=== PATIENT | male | born 1955 | race Caucasian/White ===

== ENCOUNTER → 2019-04-28 | Outpatient (CLI) | payer OTHER, SELFPAY ==
--- NOTE | 2019-04-28 13:57 | US_ITS ---
STUDY: THYROID ULTRASOUND REASON FOR EXAM: Male, 63 years old. Nodule, family history of thyroid issues TECHNIQUE: Ultrasound evaluation of the thyroid was performed with real-time and static vega-scale imaging. COMPARISON: None. FINDINGS: RIGHT LOBE: The right lobe of the thyroid gland measures 5.6 x 2.0 x 2.4 cm. There is a heterogeneous echotexture. There are multiple right thyroid lobe nodules, the largest 3 of which were measured. There is a solid isoechoic nodule measuring 4 x 5 x 4 mm. There is a solid isoechoic nodule measuring 7 x 7 x 5 mm. There is a cyst measuring 7 x 5 x 5 mm. LEFT LOBE: The left lobe of the thyroid gland measures 6.0 x 3.4 x 3.2 cm. There is a heterogeneous echotexture. There are multiple left thyroid lobe nodules, the largest 3 were measured. There is a solid complex nodule measuring 24 x 23 x 23 mm. There is an additional solid complex nodule measuring 23 x 24 x 21 mm. The third largest nodule measures 17 x 21 x 10 mm. ISTHMUS: The isthmus measures 4 mm. . The regional lymph nodes are normal. US/Thyroid IMPRESSION: Numerous bilateral thyroid nodules suggestive of multinodular goiter. Fine-needle aspiration biopsy of the greater than 1 cm left thyroid lobe nodules is recommended. Electronically Signed: Willem Brush MD at 23:57 EDT , Service support ,
== END | disposition home or self-care (01) ==
LOC: US 13:52
PROVIDERS: Family Provider Internal Medicine; PCP Internal Medicine; Referring Provider Internal Medicine; Visit Provider Internal Medicine
DX: E04.1 Nontoxic single thyroid nodule (principal)
CPT/HCPCS: 76536

== ENCOUNTER → 2019-05-25 | Outpatient (CLI) | payer OTHER, SELFPAY ==
--- NOTE | 2019-05-25 14:45 | ASPS_PTH ---
PATIENT: LIZZY UREÑA LOC: [facility] U#:[id number] AGE/SX: 63/M ROOM: RE05/25/[address]: Dr. Brett Sue MD : 1955 BED: DIS: 05/25/2019 SPEC #: [id number] RECD: 05/25/19 15:35 STATUS: WALDEMAR RUBEN #: [id number] ELEONORA: 05/25/19 14:[address]: Brett Sue DEPT: CYTOLOGY RECD BY: Shasta Hudson ENTERED: 05/26/19 08:49 SP TYPE: ASPIRATION OTHR DR: Dr. Sheree Roy DO Tissues: Thyroid gland, NOS Procedures: Special Stain Group II Cytology Other HEADER OPERATION: Ultrasound guided fine needle aspiration left thyroid PRE-OP DIAGNOSIS: Multinodular goiter E04.2 TISSUE SUBMITTED: Fine needle aspiration left thyroid (18 slides) DIAGNOSIS CYTOLOGY Left thyroid nodule, ultrasound-guided FNA (smears): Consistent with benign colloid nodule with cystic changes. Adequate for evaluation. See comment. SJ:rg 05/27/19 COMMENT Immediate cytologic evaluation to determine adequacy is not applicable. Correlation with clinical, radiologic findings and appropriate follow up are necessary. CYTOLOGY STUDY Slides are reviewed. CYTOLOGY GROSS Received are 18 smears labeled with the patient's name and designated per the requisition as FNA left thyroid. Submitted for staining. /CC:cc 05/26/19 TC:5 CPT: 31152
[2019-05-25 14:59] VITALS: BMI 34.0
== END | disposition home or self-care (01) ==
LOC: LABSPEC 15:37
PROVIDERS: Family Provider Internal Medicine; PCP Internal Medicine; Referring Provider Surgery; Visit Provider Surgery
DX: E04.2 Nontoxic multinodular goiter (principal)
CPT/HCPCS: 88161; 88313

== ENCOUNTER → 2019-10-07 13:31 | Outpatient (CLI) | payer OTHER, SELFPAY ==
[2019-05-25 14:59] VITALS: BMI 34.0
== END ==
PROVIDERS: PCP Internal Medicine; Referring Provider Internal Medicine; Visit Provider Internal Medicine
DX: M54.40 Lumbago with sciatica, unspecified side (principal)

== ENCOUNTER 2019-10-18 03:05 | Emergency (ER) | payer OTHER, SELFPAY ==
[2019-05-25 14:59] VITALS: BMI 34.0
[2019-10-18 03:07] VITALS: BP 159/99; BP 171/106; PULSE 95; RESP 18; TEMP 36.4; O2SAT 98; BMI 29.9
--- NOTE | 2019-10-18 03:23 | ED.VISSUMM ---
- ER Visit Summary Date of Service: 10/18/19 Chief Complaint: Right lower back pain after moving a refrigerator History of Present Illness: The patient is a 64 M history of prior diabetes and hypertension but states he lost a fair amount of weight and those resolved. Patient states he was helping his daughters friend move. And on Saturday morning after they moved a refrigerator he developed lower back pain on the right side at times he goes to his right leg. He denies any prior back surgery or degenerative disc disease. He denies any numbness or incontinence. No leg weakness. Physical Examination: Older male no acute distress vital signs are stable and afebrile. He does not look septic or toxic. H EENT exam unremarkable. Neck nontender no lymphadenopathy. Lungs clear to auscultation bilaterally. Heart regular rhythm no murmur. Abdomen soft nontender normal bowel sounds no peritoneal signs. No pulsatile mass. Patient is moving all 4 extremities. Neurovascularly intact. 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 5 out of 5 dorsi plantar flexion. No cauda equina. No saddle anesthesia. Normal medial thigh sensation. Normal dorsi plantarflexion of the feet. Negative straight leg raise bilaterally. Back spine is nontender. He has tenderness primarily over his right SI joint. There is no ecchymosis or bruising. No redness or warmth. No signs of trauma. Neurologic exam is normal. Again no cauda equina. Normal motor strength and sensation of both lower extremities. Test Results: None Emergency Department Course and Treatment: History and exam are consistent with acute right sciatica. Patient drove but will be given 1 OxyIR to take at home tonight. Treatment Plan: Motrin for pain. Ice to the area. Limited Percocet 10 no refill. Follow-up with his primary care physician. Disposition: Discharge Impression: Acute right sciatica This note was generated with My[employer] dictation software. It may contain incorrect words, spelling, and punctuation that were not noted in review of the chart prior to signing ED Disposition - Plan for ED Patient: Referrals: NOT,DEFINED [Primary Care Provider] -
--- NOTE | 2019-10-18 03:26 | DCINST.ED_ITS ---
ED Disposition - Plan for ED Patient: Disposition: Home or Assisted Living Instructions: BACK PAIN w/ SCIATICA Prescriptions: Oxycodone HCl/Acetaminophen [Percocet 10-325 mg Tablet] 1 tab PO Q6H PRN PRN 3 Days #10 tab PRN Reason: Pain Prescription Printed Referrals: Fast,Sheree, DO [NON-STAFF] - 1 Week if not improving Additional Instructions: Ice to your lower back. Motrin for pain and inflammation. Percocet for more severe pain. Make sure you are drinking plenty of fluids and eating plenty of fiber to prevent constipation. Follow-up with your doctor or someone else in the office if you have to change d octors.
[2019-10-18] MEDS: oxyCODONE 5 MG Tablet 10 MG PO (03:33)
[2019-10-18 03:34] VITALS: BP 149/86; PULSE 96; RESP 16; O2SAT 98
== END 2019-10-18 03:40 | disposition home or self-care (01) ==
LOC: ED 03:41
PROVIDERS: Emergency Provider Emergency Medicine; PCP Internal Medicine
DX: M54.41 Lumbago with sciatica, right side (principal); Z72.0 Tobacco use
CPT/HCPCS: 99283

== ENCOUNTER 2022-02-03 10:48 | Emergency (ER) | payer MEDICARE, OTHER, SELFPAY ==
[2022-02-03 10:49] VITALS: BP 148/110; PULSE 87; RESP 17; TEMP 36.6; O2SAT 99; BMI 32.1
[2022-02-03 10:57] VITALS: BP 148/110; PULSE 87; RESP 17; TEMP 36.6; O2SAT 99
--- NOTE | 2022-02-03 11:08 | CT_ITS ---
STUDY: CT ABDOMEN AND PELVIS WITHOUT CONTRAST REASON FOR EXAM: Male, 66 years old. Radiating flank pain RADIATION DOSAGE (If Supplied By Facility): CTDIvol = ( 13.99 ) mGy, DLP = ( 751.32 ) mGycm TECHNIQUE: Transaxial images were obtained from the dome of the diaphragm to the symphysis pubis without oral contrast, and without intravenous contrast. Sagittal and coronal images were reconstructed. Individualized dose optimization techniques were used for this CT. COMPARISON: None. FINDINGS: There are chronic interstitial fibrotic changes of the lung bases. The visualized portions of the heart are within normal limits, there is a small pericardial effusion. Normal liver. Normal gallbladder and extrahepatic biliary system. Normal spleen. Normal pancreas. Normal bilateral adrenal glands. There is right-sided hydronephrosis and hydroureter with perinephric and periureteral inflammatory stranding. Findings due to a 5.6 mm stone in the proximal right ureter on axial image 75. Normal left kidney, incidental note is made of a retroaortic left renal vein Normal visualized stomach. Normal small intestine. Retained stool in the colon with scattered colonic diverticula, no CT evidence of acute diverticulitis. There is a bowel loop interposed between the anterior edge of the liver and the peritoneal surface which can cause pain in the right clinical setting. There is non-visualization of the appendix. Normal abdominal aorta. Normal inferior vena cava. Scattered subcentimeter mesenteric and retroperitoneal lymph nodes. Normal urinary bladder. Normal abdominal wall. There are diffuse degenerative changes of the visualized lumbar spine, and pelvis. CT/Abdomen/Pelvis without Cont IMPRESSION: 5.6 mm calcification in the proximal right ureter causing right-sided hydronephrosis and hydroureter with perinephric and periureteral inflammatory stranding. Retained stool noted in the colon, scattered colonic diverticula without CT evidence of acute diverticulitis No free intraperitoneal fluid, air, or suspicious adenopathy Degenerative bony changes Small pericardial effusion Electronically Signed: Angelo Bolaños MD at 12:40 EDT ,
--- NOTE | 2022-02-03 11:09 | EX.ED.GUMALE ---
HPI History of Present Illness Chief Complaint: Flank Pain Narrative Narrative: 66-year-old male presenting with right flank pain. He states its been intermittent for the last 3 days. He describes it as sharp. He has episodes where he is sweating and nauseous. Initially he thought he ate some bad food and has cut out meat. He states he is having bowel movements. He denies urinary complaints. No fever. Patient states ibuprofen is not helping. He has been drinking a lot of water. No history of kidney stones. [facility] Medical History (Updated 02/03/22 @ 13:[address] Neel Mills DO) Erectile dysfunction Hypertension thyroid nodues Home Medications Cialis 5 mg PO/SL DAILY PRN Erectile Dysfunction 02/03/22 [History Last Taken Unknown] ondansetron 4 mg disintegrating tablet 4 mg PO Q8H PRN nausea and vomiting #12 tabs 02/03/22 [Rx Last Taken Unknown] oxycodone-acetaminophen 5 mg-325 mg tablet (Percocet) 1 tab PO Q6H PRN pain 3 days #12 tabs 02/03/22 [Rx Last Taken Unknown] valsartan 160 mg PO/SL DAILY 02/03/22 [History Last Taken Unknown] Allergy/AdvReac Type Severity Reaction Status Date / Time No Known Allergies Allergy Verified 02/03/22 10:49 Family History Mother Thyroid disorder Cancer cervical cancer Father Hypertension Surgical History No history of previous surgery Social History Smoking Status: Current some day smoker tobacco type: cigarettes alcohol intake: never substance use type: does not use ROS ROS ED Constitutional Constitutional ED: Reports sweats; Denies chills or fever(s) Eyes Eyes: Denies blurry vision or change in vision ENT ENT ED: Denies rhinorrhea or sore throat Cardiovascular Cardiovascular: Denies chest pain or palpitations Respiratory/Chest Respiratory/Chest: Denies cough or dyspnea Gastrointestinal Gastrointestinal: Reports abdominal pain, nausea and vomiting; Denies constipation Genitourinary Genitourinary ED: Denies dysuria or hematuria Musculoskeletal Musculoskeletal: Reports back pain; Denies arthralgias Integumentary Denies abscess Neurologic Neurologic: Denies headache(s) or paresthesias Psychiatric Psychiatric: Denies anxiety or depression EXAM Physical Exam Const Vital Signs: 02/03/22 10:49 02/03/22 10:57 Temperature 97.8 F 97.8 F Temperature Source Temporal Temporal Pulse Rate 87 87 Respiratory Rate 17 17 Blood Pressure 148/110 H 148/110 H Blood Pressure Mean 122 122 Pulse Ox 99 99 Oxygen Delivery Method Room Air Room Air Positive well nourished General Appearance ED: NAD; Negative for pallor HEENT Reports moist mucous membranes normocephalic Eyes PERRL and EOMs intact bilaterally Resp normal respiratory effort and clear to auscultation bilaterally Cardio regular rate and regular rhythm GI non-tender Back/Spine General Back: CVA tenderness right Neuro Sensorium / Orientation: alert, oriented to person, oriented to place and oriented to time Motor Exam: strength 5/5 throughout Psych mental status grossly normal Skin General Skin Exam: Negative for jaundice or pallor MDM MDM MDM Narrative Medical decision making narrative: Patient presenting with right flank pain. This is been ongoing for 3 days. It is intermittent and sharp. I did obtain urinalysis and this does show occult blood. There is no evidence of infection. CBC and BMP are unremarkable. CT abdomen pelvis without contrast shows a right 5.6 mm proximal ureteral stone. Patient required 2 doses of morphine for this pain her control is currently pain-free. He was given oxycodone prior to discharge. He is counseled if he has new or worsening pain or worsening nausea and vomiting to return to the ER. He was given Percocet and Zofran for home. He was given urology follow-up. Impression: 1. Right proximal ureteral stone 5.6 mm 2. Hematuria 3. Nausea/vomiting 4. Right-sided hydronephrosis Lab Data Attestation: I reviewed the patient's lab results. Labs: Laboratory Results - last 24 hr 02/03/22 02/03/22 02/03/22 11:23 11:30 11:30 WBC 8.5 RBC 5.63 Hgb 17.4 H Hct 51.2 MCV 90.9 MCH 30.9 MCHC 34.0 RDW Std Deviation 45.9 H RDW Coeff of Quiana 13.5 Plt Count 179 MPV 9.7 Immature Gran % (Auto) 0.400 Neut % (Auto) 86.9 H Lymph % (Auto) 6.4 L [place] % (Auto) 5.7 Eos % (Auto) 0.2 Baso % (Auto) 0.4 Absolute Neuts (auto) 7.4 Absolute Lymphs (auto) 0.55 L Nucleated RBC % 0 Differential Comment SCANNED Sodium 141 Potassium 4.0 Chloride 111 H Carbon Dioxide 25.0 Anion Gap 5 BUN 19 H Creatinine 1.17 Estim Creat Clear Calc 58.46 Est GFR (MDRD) Af Amer 80 Est GFR (MDRD) Non-Af 66 BUN/Creatinine Ratio 16.2 Glucose 144 H Calcium 8.9 Urine Color Yellow Urine Clarity Clear Urine pH 6.0 Ur Specific [place] 1.025 Urine Protein 30 H Urine Glucose (UA) Normal Urine Ketones Negative Urine Occult Blood 25 H Urine Nitrite Negative Urine Bilirubin Negative Urine Urobilinogen Normal Ur Leukocyte Esterase 25 H Urine RBC 5-10 SEEN Urine WBC 5-10 SEEN Ur Squamous Epith Cells 0 SEEN Urine Bacteria 0 SEEN Urine Mucus 0 SEEN Radiography Diagnostic Testing: Clinical Impression(s) from Imaging Studies Abdomen/Pelvis CT 02/03/22 11:08 IMPRESSION: 5.6 mm calcification in the proximal right ureter causing right-sided hydronephrosis and hydroureter with perinephric and periureteral inflammatory stranding. Retained stool noted in the colon, scattered colonic diverticula without CT evidence of acute diverticulitis No free intraperitoneal fluid, air, or suspicious adenopathy Degenerative bony changes Small pericardial effusion Electronically Signed: Angelo Bolaños MD at 12:40 EDT Reading Location ID and State: [address] [place] [address] , Service support , Discharge Plan Triage Chief Complaint: Flank Pain ED Provider: Neel Mills Dx/Rx/DC Orders Instructions: ED Kidney Stone w/ Colic Prescriptions: New oxycodone-acetaminophen [Percocet] 5-325 mg tablet 1 tab PO Q6H PRN (Reason: pain) 3 Days Qty: 12 0RF ondansetron 4 mg tablet,disintegrating 4 mg PO Q8H PRN (Reason: nausea and vomiting) Qty: 12 0RF No Action Cialis 5 mg PO/SL DAILY PRN (Reason: Erectile Dysfunction) valsartan 160 mg PO/SL DAILY Primary Care Provider: Patrick Schultz NP Referrals: Kenneth Ward MD [STAFF PHYSICIAN] - 3-5 Days Patrick Schultz NP, T[employer] EXAMINER-C [Primary Care Provider] - Disposition Disposition: Home, Self Care Discharge Date/Time: 02/03/22 13:46
[2022-02-03] MEDS: Ketorolac 15 MG/ML Vial IV (11:27)
[2022-02-03] MEDS: Ondansetron 4 MG/2 ML Vial IV (11:27)
[2022-02-03] MEDS: Morphine 4 MG/ML Syringe IV ×2 (11:28→12:20)
[2022-02-03] MEDS: 0.9% Normal Saline 1,000 ML 999 ML IV (11:30)
[2022-02-03 11:31] LABS: Bacteria 0 SEEN /hpf (None Seen); Mucous, Urine 0 SEEN /hpf (<or=2+); Squamous Epithelial Cells - UA 0 SEEN /hpf (0-5)
[2022-02-03 11:38] LABS: Color, Urine Yellow (Yellow); Glucose, Dipstick Normal (Normal); Ketone-Dipstick Negative (Negative); Leukocyte Esterase-Dipstick 25 /ul (Negative); Nitrite-Dipstick Negative (Negative); Occult Blood-Urine 25 /ul (Negative); Protein-Dipstick 30 mg/dl (Negative); Specific Gravity, Urine 1.025 (1.002-1.030); Urine Bilirubin Dipstick Negative (Negative); Urine Clarity Clear (Clear); Urine Urobilinogen Normal (Normal)
[2022-02-03 11:46] LABS: Red Blood Cells-Urine 5-10 SEEN /hpf (0-5); White Blood Cells 5-10 SEEN /hpf (0-5)
[2022-02-03 11:51] LABS: Anion Gap 5 (5-15); BUN 19 mg/dL (7-18); BUN/Creat Ratio 16.2 RATIO (10-20); Calcium,Total 8.9 mg/dL (8.5-10.1); Chloride 111 mmol/L (98-107); Creatinine, Serum 1.17 mg/dL (0.70-1.30); EST Glomerular Filtration Rate 66 mL/min (>60); Est Glom Filt Rate - Afr Amer 80 mL/min (>60); Estimated Creatinine Clearance 58.46 ml/min; Glucose 144 mg/dL (74-106); Sodium Level 141 mmol/L (136-145)
[2022-02-03 11:52] LABS: Absolute Lymphocyte Count 0.55 X10^3/uL (0.83-4.51); Absolute Neutrophil Count 7.4 X10^3/uL (2.0-7.7); Basophil# 0.03 X10^3/uL; Basophil% 0.4 % (0-1); Eosinophil# 0.02 X10^3/uL; Eosinophils% 0.2 % (0-5); Hematocrit 51.2 % (40-54); Hemoglobin 17.4 g/dL (13.0-16.5); Lymphocyte # 0.55 X10^3/ul (0.83-4.51); Lymphocyte % 6.4 % (19-41); Mean Corpuscular Hgb 30.9 pg (27.0-32.0); Mean Corpuscular Volume 90.9 fL (80-94); Mean Platelet Vol. 9.7 fl (6.2-12.0); Monocyte# 0.49 X10^3/uL; Monocyte% 5.7 % (0-10); NRBC Flagged by Analyzer 0 % (0-5); Neutrophil # 7.42 X10^3/uL (2.7-7.7); Neutrophil % 86.9 % (47-70); POSITIVE DIFFERENTIAL YES; Platelet Count 179 K/mm3 (150-450); RBC Distribution Width CV 13.5 % (11.6-14.6); RBC Distribution Width SD 45.9 fl (35.1-43.9); Red Blood Count 5.63 M/mm3 (4.6-6.2); White Blood Count 8.5 K/mm3 (4.4-11.0)
[2022-02-03 11:57] LABS: Differential Indicated SCAN CRITERIA MET
[2022-02-03 12:27] LABS: Differential Comment SCANNED
[2022-02-03] MEDS: oxyCODONE 5 MG Tablet PO (13:32)
== END 2022-02-03 13:46 | disposition home or self-care (01) ==
PROVIDERS: Emergency Provider Student in an Organized Health Care Education/Training Program; PCP Nurse Practitioner Family; Visit Provider Student in an Organized Health Care Education/Training Program
DX: N13.2 Hydronephrosis with renal and ureteral calculous obstruction (principal); R31.9 Hematuria, unspecified; F17.210 Nicotine dependence, cigarettes, uncomplicated
CPT/HCPCS: 74176; 80048; 81001; 85025; 96361; 96374; 96375; 96376; 99283; J7030; J2405

== ENCOUNTER 2022-02-09 23:58 | Emergency (ER) | payer MEDICARE, OTHER, SELFPAY ==
[2022-02-09 23:59] VITALS: BP 159/106; PULSE 84; RESP 15; TEMP 36.6; O2SAT 97; BMI 30.4
--- NOTE | 2022-02-10 00:44 | CT_ITS ---
EXAM: CT ABDOMEN AND PELVIS WITHOUT INTRAVENOUS CONTRAST CLINICAL INDICATION: right flank pain TECHNIQUE: Helically acquired images were obtained of the abdomen and pelvis without intravenous contrast. This CT exam was performed using one or more of the following dose reduction techniques: automated exposure control, adjustment of the mA and/or kV according to patient size, and/or use of iterative reconstruction technique. This report was created using [employer] report generation technology. COMPARISON: Nonenhanced CT of 02/03/2022. FINDINGS: LOWER THORAX: No acute basilar pulmonary infiltrates or pleural effusions. Small-moderate pericardial effusion is present, slightly larger than on the prior study; this pericardial effusion measures up to 15 mm in thickness inferiorly and 12 mm in thickness posteriorly. Moderate coronary artery calcification is partially visualized. BONES: Extensive flowing osteophytes noted in the lower thoracic region with fusion of many of the lower thoracic disc spaces. Severe degenerative disc space narrowing with vacuum phenomenon noted at the L5/S1 level. ABDOMEN: LIVER: Right hepatic lobe remains elongated measuring 20 cm in cephalocaudal dimension. GALLBLADDER AND BILE DUCTS: Unremarkable. No calcified gallstones. No gallbladder distention or wall edema. No intra- or extrahepatic biliary ductal dilation. PANCREAS: Unremarkable. No focal cystic mass. An uncomplicated duodenal diverticulum abuts the pancreatic head. SPLEEN: Spleen remains enlarged measuring 15 cm in AP diameter. ADRENALS: Unremarkable. No nodules. KIDNEYS AND URETERS: Right kidney remains edematous with persistent hydronephrosis, not significantly changed. The proximal right ureter remains dilated secondary to a 5 mm ovoid stone lies within the proximal third of the right ureter as it curves posterior medial to the IVC as noted on axial images 83 through 85 of series 2. More distal right ureter is decompressed. Left kidney is unremarkable. Normal renal size and position. STOMACH AND BOWEL No gastric mural thickening, periduodenal inflammatory changes or distended small bowel loops. Numerous colonic diverticula are present without evidence for acute diverticulitis. PELVIS: APPENDIX: Normal. No evidence of acute appendicitis. BLADDER: The previously noted bladder calculi are no longer present. REPRODUCTIVE: Prostate gland measures 4.8 cm in transverse diameter. ABDOMEN and PELVIS: INTRAPERITONEAL SPACE: Unremarkable. No ascites or other fluid collection. No free air. SOFT TISSUES: Unremarkable. No discrete abdominal or pelvic wall hernia. VASCULATURE: Mild calcific abdominal aorta and its branches. No AAA. . LYMPH NODES: Unremarkable. No enlarged lymph nodes. OTHER FINDINGS: Dosage: DLP: 621.45 mGy-cm and CTDI: 11.[address]/Abdomen/Pelvis without Cont IMPRESSION: Stable moderate right hydronephrosis due to a 5 mm stone which lies within the proximal third of the ureter. Slight increase in size of a mild/moderate pericardial effusion. 2 bladder calculi seen on the prior study are no longer present. Extensive colonic diverticulosis without evidence for acute diverticulitis. Electronically Signed: Charan Ding MD at 2:23 EDT ,
[2022-02-10] MEDS: Ondansetron 4 MG/2 ML Vial IV (00:50)
[2022-02-10] MEDS: Morphine 4 MG/ML Syringe IV (00:50)
[2022-02-10] MEDS: 0.9% Normal Saline 1,000 ML 999 ML IV (00:54)
[2022-02-10 01:06] LABS: Mucous, Urine 0 SEEN /hpf (<or=2+); Squamous Epithelial Cells - UA 0 SEEN /hpf (0-5)
[2022-02-10 01:08] LABS: Absolute Lymphocyte Count 0.88 X10^3/uL (0.83-4.51); Absolute Neutrophil Count 3.9 X10^3/uL (2.0-7.7); Basophil# 0.06 X10^3/uL; Basophil% 1.1 % (0-1); Color, Urine Yellow (Yellow); Eosinophil# 0.22 X10^3/uL; Eosinophils% 3.9 % (0-5); Glucose, Dipstick Normal (Normal); Hematocrit 53.9 % (40-54); Hemoglobin 17.7 g/dL (13.0-16.5); Ketone-Dipstick 5 mg/dl (Negative); Leukocyte Esterase-Dipstick 25 /ul (Negative); Lymphocyte # 0.88 X10^3/ul (0.83-4.51); Lymphocyte % 15.4 % (19-41); Mean Corp Hgb Conc 32.8 g/dL (32-36); Mean Corpuscular Hgb 31.6 pg (27.0-32.0); Mean Corpuscular Volume 96.1 fL (80-94); Mean Platelet Vol. 9.9 fl (6.2-12.0); Monocyte% 10.5 % (0-10); NRBC Flagged by Analyzer 0 % (0-5); Neutrophil # 3.92 X10^3/uL (2.7-7.7); Neutrophil % 68.7 % (47-70); Nitrite-Dipstick Negative (Negative); Occult Blood-Urine 50 /ul (Negative); Platelet Count 203 K/mm3 (150-450); Protein-Dipstick 30 mg/dl (Negative); RBC Distribution Width CV 13.4 % (11.6-14.6); RBC Distribution Width SD 48.2 fl (35.1-43.9); Red Blood Count 5.61 M/mm3 (4.6-6.2); Specific Gravity, Urine 1.025 (1.002-1.030); Urine Bilirubin Dipstick Negative (Negative); Urine Clarity Clear (Clear); Urine Urobilinogen 1 mg/dl (Normal); White Blood Count 5.7 K/mm3 (4.4-11.0)
[2022-02-10 01:18] LABS: White Blood Cells 10-25 SEEN /hpf (0-5)
[2022-02-10 01:19] LABS: Bacteria 1+ /hpf (None Seen); Calcium Oxalate Crystals Ur RARE /hpf (<or=2+); Red Blood Cells-Urine 0-5 SEEN /hpf (0-5)
[2022-02-10 01:23] LABS: Anion Gap 3 (5-15); BUN 16 mg/dL (7-18); Calcium,Total 9.1 mg/dL (8.5-10.1); Chloride 108 mmol/L (98-107); Creatinine, Serum 1.33 mg/dL (0.70-1.30); EST Glomerular Filtration Rate 57 mL/min (>60); Est Glom Filt Rate - Afr Amer 69 mL/min (>60); Estimated Creatinine Clearance 51.43 ml/min; Glucose 141 mg/dL (74-106); Potassium 3.9 mmol/L (3.5-5.1); Sodium Level 142 mmol/L (136-145)
[2022-02-10] MEDS: Ketorolac 15 MG/ML Vial IV (02:09)
[2022-02-10] MEDS: Ceftriaxone 1 GM/50 ML BAG IV (02:10)
[2022-02-10 02:13] VITALS: BP 122/78; PULSE 75; RESP 15; O2SAT 96
[2022-02-10 03:21] VITALS: BP 122/78; PULSE 75; RESP 15; O2SAT 96
--- NOTE | 2022-02-10 03:22 | EDS_ITS ---
HPI History of Present Illness Chief Complaint: Flank Pain Narrative Narrative: Patient is a 66-year-old male with past medical history of kidney stone and hypertension. He was seen on February 03 secondary to right flank pain and found to have a 5 mm stone in the proximal ureter. He states he has been taking his prescribed medications as directed but today had increased pain despite doing this and therefore returns for repeat evaluation. [facility] Medical History (Updated 02/10/22 @ 03:[address] Khurram Morton DO) Anxiety Erectile dysfunction Hypertension Kidney stones Osteoporosis Smoker thyroid nodues Home Medications Cialis 5 mg PO/SL DAILY PRN Erectile Dysfunction 02/03/22 [History Last Taken Unknown] oxycodone-acetaminophen 5 mg-325 mg tablet (Percocet) 1 tab PO Q6H PRN pain 3 days #12 tabs 02/03/22 [Rx Last Taken Unknown] valsartan 160 mg PO/SL DAILY 02/03/22 [History Last Taken Unknown] cephalexin 500 mg capsule 500 mg PO TID 7 days #21 caps 02/10/22 [Rx Last Taken Unknown] ketorolac 10 mg tablet 10 mg PO Q6H PRN pain 5 days #20 tabs 02/10/22 [Rx Last Taken Unknown] omeprazole 20 mg capsule,delayed release 20 mg PO DAILY 02/10/22 [History Last Taken Unknown] oxycodone-acetaminophen 5 mg-325 mg tablet (Percocet) 1 tab PO Q6H PRN pain 5 days #20 tabs 02/10/22 [Rx Last Taken Unknown] tamsulosin 0.4 mg capsule (Flomax) 0.4 mg PO BID 02/10/22 [History Last Taken Unknown] Allergy/AdvReac Type Severity Reaction Status Date / Time No Known Allergies Allergy Verified 02/10/22 00:05 Family History Mother Thyroid disorder Cancer cervical cancer Father Hypertension Surgical History No history of previous surgery Social History Smoking Status: Current some day smoker tobacco type: cigarettes alcohol intake: never substance use type: does not use ROS ROS ED Constitutional Constitutional ED: Denies chills or fever(s) ENT ENT ED: Denies sore throat Cardiovascular Cardiovascular: Denies chest pain Respiratory/Chest Respiratory/Chest: Denies cough or dyspnea Gastrointestinal Gastrointestinal: Reports abdominal pain and nausea; Denies diarrhea or vomiting Genitourinary Genitourinary ED: Reports hematuria; Denies dysuria Musculoskeletal Musculoskeletal: Reports back pain; Denies myalgias Integumentary Denies rash Neurologic Neurologic: Denies headache(s) Hematologic/Lymphatic Hematologic/Lymphatic: Denies easy bleeding or easy bruising EXAM Physical Exam Const Vital Signs: 02/09/22 23:59 02/10/22 00:20 02/10/22 02:13 Temperature 97.8 F Temperature Source Temporal Pulse Rate 84 75 Respiratory Rate 15 15 Respiratory Effort Normal Respiratory Pattern Normal Blood Pressure 159/106 H 122/78 H Blood Pressure Mean 123 92 Pulse Ox 97 96 Oxygen Delivery Method Room Air Room Air 02/10/22 03:21 Temperature Temperature Source Pulse Rate 75 Respiratory Rate 15 Respiratory Effort Respiratory Pattern Blood Pressure 122/78 H Blood Pressure Mean Pulse Ox 96 Oxygen Delivery Method Positive well nourished and well developed General Appearance ED: well developed Eyes PERRL and EOMs intact bilaterally Neck supple Resp normal respiratory effort and clear to auscultation bilaterally Cardio regular rate and regular rhythm Rate: other Other Details: Radial pulses are plus 2 out of 4 bilaterally are equal and symmetric GI non-tender and non-distended GI Narrative: No voluntary guarding or rigidity no pulsatile mass Auscultation: normoactive bowel sounds Palpation: soft Back/Spine Back/Spine Narrative: Positive right CVA pain Extremity normal to inspection Neuro oriented x3 and CN's II-XII intact bilaterally Sensorium / Orientation: alert Psych mental status grossly normal Skin no rashes or lesions noted MDM MDM MDM Narrative Medical decision making narrative: Patient presented to the ER hypertensive but I felt this was secondary to pain and otherwise had stable vitals. He has a known kidney stone on the right and based on his report of where the pain is located this would indicate the stone has hardly moved. Secondary to the repeat pain I did elect to perform repeat laboratory studies as well as CT scan. Labs showed no signs of urosepsis or acute kidney injury. The patient did have a mild infection noted on his urine sample so he was given Rocephin. CT scan still confirmed hydronephrosis with just minimal movement of the stone from approximately 1 week ago. I discussed with patient possible admission secondary to need for possible further therapy such as lithotripsy for this. Patient states however that after treatment in the ER his pain has improved. Also as he has no signs of urosepsis or acute kidney injury I cannot force the issue. Therefore at this time as patient has improvement of pain without signs of JAMAR or urosepsis he will be put on further medication and can follow-up with urology for repeat evaluation Lab Data Attestation: I reviewed the patient's lab results. Labs: Laboratory Results - last 24 hr 02/10/22 02/10/22 02/10/22 00:42 00:42 00:42 WBC 5.7 RBC 5.61 Hgb 17.7 H Hct 53.9 MCV 96.1 H MCH 31.6 MCHC 32.8 RDW Std Deviation 48.2 H RDW Coeff of [place] 13.4 Plt Count 203 MPV 9.9 Immature Gran % (Auto) 0.400 Neut % (Auto) 68.7 Lymph % (Auto) 15.4 L [place] % (Auto) 10.5 H Eos % (Auto) 3.9 Baso % (Auto) 1.1 H Absolute Neuts (auto) 3.9 Absolute Lymphs (auto) 0.88 Nucleated RBC % 0 Sodium 142 Potassium 3.9 Chloride 108 H Carbon Dioxide 31.0 Anion Gap 3 L BUN 16 Creatinine 1.33 H Estim Creat Clear Calc 51.43 Est GFR (MDRD) Af Amer 69 Est GFR (MDRD) Non-Af 57 L BUN/Creatinine Ratio 12.0 Glucose 141 H Calcium 9.1 Urine Color Yellow Urine Clarity Clear Urine pH 5.0 Ur Specific [place] 1.025 Urine Protein 30 H Urine Glucose (UA) Normal Urine Ketones 5 H Urine Occult Blood 50 H Urine Nitrite Negative Urine Bilirubin Negative Urine Urobilinogen 1 H Ur Leukocyte Esterase 25 H Urine RBC 0-5 SEEN Urine WBC 10-25 SEEN Ur Squamous Epith Cells 0 SEEN Calcium Oxalate Crystal RARE Urine Bacteria 1+ Urine Mucus 0 SEEN Radiography Diagnostic Testing: Clinical Impression(s) from Imaging Studies Abdomen/Pelvis CT 02/10/22 00:44 IMPRESSION: Stable moderate right hydronephrosis due to a 5 mm stone which lies within the proximal third of the ureter. Slight increase in size of a mild/moderate pericardial effusion. 2 bladder calculi seen on the prior study are no longer present. Extensive colonic diverticulosis without evidence for acute diverticulitis. Electronically Signed: Charan Ding MD at 2:23 EDT , Discharge Plan Triage Chief Complaint: Flank Pain ED Provider: Khurram Morton Dx/Rx/DC Orders Clinical Impression: Kidney stone on right side, Renal colic, Hydronephrosis Instructions: ED Kidney Stone w/ Colic Prescriptions: New oxycodone-acetaminophen [Percocet] 5-325 mg tablet 1 tab PO Q6H PRN (Reason: pain) 5 Days Qty: 20 0RF ketorolac 10 mg tablet 10 mg PO Q6H PRN (Reason: pain) 5 Days Qty: 20 0RF cephalexin 500 mg capsule 500 mg PO TID 7 Days Qty: 21 0RF No Action Cialis 5 mg PO/SL DAILY PRN (Reason: Erectile Dysfunction) valsartan 160 mg PO/SL DAILY oxycodone-acetaminophen [Percocet] 5-325 mg tablet 1 tab PO Q6H PRN (Reason: pain) 3 Days Qty: 12 0RF tamsulosin [Flomax] 0.4 mg Capsule 0.4 mg PO BID omeprazole 20 mg Capsule,Delayed Release(Dr/Ec) 20 mg PO DAILY Primary Care Provider: Patrick Schultz NP Referrals: Patrick Schultz INVENTORY AUDITOR, INVENTORY AUDITOR-C [Primary Care Provider] - Activity Restrictions/Additional Instructions: Please follow-up with the urology to discuss need for possible lithotripsy as your stone has not really moved in the past week. Please continue your Flomax and return to the ER if your pain is not controlled with outpatient medication or you develop a fever over 100.4 Disposition Disposition: Home, Self Care Discharge Date/Time: 02/10/22 03:34
== END 2022-02-10 03:34 | disposition home or self-care (01) ==
PROVIDERS: Emergency Provider Emergency Medicine; PCP Nurse Practitioner Family; Visit Provider Emergency Medicine
DX: N13.2 Hydronephrosis with renal and ureteral calculous obstruction (principal); N23 Unspecified renal colic; F17.210 Nicotine dependence, cigarettes, uncomplicated; I10 Essential (primary) hypertension; Z79.899 Other long term (current) drug therapy
CPT/HCPCS: 74176; 80048; 81001; 85025; 87086; 96361; 96365; 96375; 99283; J7030; A4216; J2405

== ENCOUNTER → 2022-06-13 | Outpatient (CLI) | payer MEDICARE, OTHER, SELFPAY ==
--- NOTE | 2022-06-13 09:12 | EKG12_ITS ---
Test Reason : PALPITATIONS Blood Pressure : / mmHG Vent. Rate : 095 BPM Atrial Rate : 095 BPM P-R Int : 162 ms QRS Dur : 084 ms QT Int : 384 ms P-R-T Axes : 065 228 116 degrees QTc Int : 482 ms Normal sinus rhythm ST & T wave abnormality, consider lateral ischemia Abnormal ECG Confirmed by YASMANI LIAO, RAFAEL ([id number]), makeup editor ASHA BUSTAMANTE ([id number]) on 06/19/2022 10:53:58 AM Referred By: Patrick Schultz Confirmed By:MURRAY GRUBER MD
[2022-06-13 10:26] LABS: Hematocrit 54.7 % (40-54); Hemoglobin 18.1 g/dL (13.0-16.5); Mean Corp Hgb Conc 33.1 g/dL (32-36); Mean Corpuscular Hgb 31.3 pg (27.0-32.0); Mean Corpuscular Volume 94.6 fL (80-94); Mean Platelet Vol. 10.4 fl (6.2-12.0); Platelet Count 154 K/mm3 (150-450); RBC Distribution Width CV 13.8 % (11.6-14.6); RBC Distribution Width SD 48.1 fl (35.1-43.9); Red Blood Count 5.78 M/mm3 (4.6-6.2); White Blood Count 5.8 K/mm3 (4.4-11.0)
[2022-06-13 10:56] LABS: BNP,B-Type NATRIURETIC PEPTIDE 1455.5 pg/mL (0-100)
[2022-06-13 11:20] LABS: ALB/GLOB Ratio 1.2 RATIO (0.9-2.4); AST(SGOT) 23 U/L (15-37); Alanine Aminotransfer ALT/SGPT 18 U/L (16-61); Albumin, Serum 3.6 g/dL (3.2-5.0); Alkaline Phosphatase 95 U/L (45-117); Anion Gap 5 (5-15); BUN 17 mg/dL (7-18); CRP < 2.90 mg/L (0.0-3.0); Calcium,Total 8.6 mg/dL (8.5-10.1); Chloride 107 mmol/L (98-107); Creatinine, Serum 1.06 mg/dL (0.70-1.30); EST Glomerular Filtration Rate 74 mL/min (>60); Est Glom Filt Rate - Afr Amer 89 mL/min (>60); Globulin 3.1 g/dL (2.2-4.2); Glucose 130 mg/dL (74-106); Potassium 3.9 mmol/L (3.5-5.1); Protein, Total 6.7 g/dL (6.4-8.2); Sodium Level 141 mmol/L (136-145); Thyroid Stim Hormone (TSH) 1.15 uIU/mL (0.358-3.74)
[2022-06-14 15:38] LABS: Pathologist Review Reviewed
== END | disposition home or self-care (01) ==
PROVIDERS: PCP Nurse Practitioner Family; Referring Provider Nurse Practitioner Family; Visit Provider Nurse Practitioner Family
DX: I10 Essential (primary) hypertension (principal); R00.2 Palpitations; R60.0 Localized edema; R63.8 Other symptoms and signs concerning food and fluid intake; R94.31 Abnormal electrocardiogram [ECG] [EKG]
CPT/HCPCS: 36415; 80053; 83880; 84443; 85027; 86140; 93005

== ENCOUNTER → 2022-06-21 | Outpatient (CLI) | payer MEDICARE, OTHER, SELFPAY ==
--- NOTE | 2022-06-21 12:59 | ECHOD_ITS ---
Reason For Study: PALP Procedure This was a 2D Doppler, Color Flow transthoracic echocardiogram. Exam performed in department. Left Ventricle Normal LV size. Moderate concentric left ventricular hypertrophy. Severe global left ventricular systolic dysfunction. The left ventricular ejection fraction is 20 %. Stage 3 diastolic dysfunction. Right Ventricle Normal RV size. Moderately severe global right ventricular systolic dysfunction. Atria The left atrium is severely enlarged. The right atrium is severely enlarged. Mitral Valve Mild-Moderate (1-2+) mitral valve insufficiency. Tricuspid Valve Mild tricuspid valve insufficiency. Right ventricular systolic pressure estimated to be 47 mmHg. Mild pulmonary hypertension. Aortic Valve Trisinus/trileaflet aortic valve. Trivial aortic valve insufficiency. Pulmonic Valve The pulmonic valve is not well visualized. Trivial eccentric pulmonic valve insufficiency. Great Vessels Mildly dilated aortic root. Pericardium/Pleural Moderate pericardial effusion. There are no echocardiographic indications of cardiac tamponade. MMode/2D Measurements & Calculations LVIDd: 5.2 cm IVSd: 1.6 cm Ao root diam: 3.9 cm LVIDs: 5.0 cm LVPWd: 1.3 cm RVDd: 4.8 cm FS: 3.7 % LAV(MOD-bp): 80.1 ml LVAd ap4: 47.1 cm2 SV(MOD-sp4): 53.4 ml LAV(MOD-bp) Indexed: 39.2 ml/m2 LVLd ap4: 10.0 cm LAV(MOD-sp2): 79.2 ml EDV(MOD-sp4): 185.0 ml LAV(MOD-sp4): 77.9 ml EDV(sp4-el): 187.7 ml LVAs ap4: 36.3 cm2 LVLs ap4: 8.4 cm ESV(MOD-sp4): 131.7 ml ESV(sp4-el): 132.4 ml EF(MOD-sp4): 28.8 % EF(sp4-el): 29.4 % SV(sp4-el): 55.2 ml LA A4 area: 24.4 cm2 LA dimension(2D): 5.3 cm RA A4 area: 25.9 cm2 Time Measurements MV dec time: 0.16 sec Doppler Measurements & Calculations MV E max jose luis: 90.7 cm/sec Lat Peak E' Jose Luis: 7.9 cm/sec Med Peak E' Jose Luis: 6.7 cm/sec MV A max jose luis: 46.3 cm/sec E/E' lat: 11.4 E/E' med: 13.5 MV E/A: 2.0 MV V2 max: 90.3 cm/sec Ao V2 max: 121.7 cm/sec MV max P.4 mmHg MV dec slope: 569.4 cm/sec2 Ao max P.9 mmHg MV V2 mean: 55.4 cm/sec Ao V2 mean: 86.7 cm/sec MV mean P.5 mmHg Ao mean P.5 mmHg MV V2 VTI: 22.9 cm Ao V2 VTI: 22.6 cm LV V1 max: 90.1 cm/sec PA V2 max: 70.2 cm/sec TR max jose luis: 281.8 cm/sec LV V1 max P.6 mmHg PA V2 mean: 47.8 cm/sec TR max P.8 mmHg LV V1 mean P.0 mmHg LV V1 mean: 62.3 cm/sec LV V1 VTI: 14.0 cm ECHO/Echo Complete Interpretation Summary Severe global left ventricular systolic dysfunction. The left ventricular ejection fraction is 15-20 %. Stage 3 diastolic dysfunction. Moderately severe global right ventricular systolic dysfunction. The left atrium is severely enlarged. The right atrium is severely enlarged. Mild-Moderate (1-2+) mitral valve insufficiency. Mild pulmonary hypertension. Mild tricuspid valve insufficiency. Mildly dilated aortic root. Moderate pericardial effusion. Consider cardiac MRI for further evalaution/ruling out cardiac amyloidosis. Ordering Physician: Patrick Schultz Referring Physician: Patrick Schultz Performed By: Brenda Avila RCS
== END | disposition home or self-care (01) ==
LOC: CVS 12:59
PROVIDERS: PCP Nurse Practitioner Family; Referring Provider Nurse Practitioner Family; Visit Provider Nurse Practitioner Family
DX: I10 Essential (primary) hypertension (principal); R00.2 Palpitations; R60.0 Localized edema
CPT/HCPCS: 93306

== ENCOUNTER → 2023-07-05 | Outpatient (CLI) | payer MEDICARE, OTHER, SELFPAY ==
[2023-07-05 10:19] LABS: Hemoglobin 17.8 g/dL (13.0-16.5); Mean Corp Hgb Conc 34.2 g/dL (32-36); Mean Corpuscular Hgb 32.3 pg (27.0-32.0); Mean Corpuscular Volume 94.4 fL (80-94); Mean Platelet Vol. 8.7 fl (6.2-12.0); Platelet Count 144 K/mm3 (150-450); RBC Distribution Width CV 12.7 % (11.6-14.6); RBC Distribution Width SD 43.9 fl (35.1-43.9); Red Blood Count 5.51 M/mm3 (4.6-6.2); White Blood Count 6.8 K/mm3 (4.4-11.0)
[2023-07-05 10:51] LABS: ALB/GLOB Ratio 1.1 RATIO (0.9-2.4); AST(SGOT) 21 U/L (15-37); Alanine Aminotransfer ALT/SGPT 12 U/L (16-61); Albumin, Serum 3.7 g/dL (3.2-5.0); Alkaline Phosphatase 102 U/L (45-117); Anion Gap 1 (5-15); BUN 13 mg/dL (7-18); BUN/Creat Ratio 13.7 RATIO (10-20); Calcium,Total 8.7 mg/dL (8.5-10.1); Chloride 110 mmol/L (98-107); Cholesterol 129 mg/dL (200); Creatinine, Serum 0.95 mg/dL (0.70-1.30); EST Glomerular Filtration Rate 84 mL/min (>60); Est Glom Filt Rate - Afr Amer 101 mL/min (>60); Globulin 3.3 g/dL (2.2-4.2); Glucose 122 mg/dL (74-106); High Density Lipoprotein 37 mg/dL; PSA,Total - Annual Screen 0.66 ng/mL (0.00-4.00); Potassium 4.3 mmol/L (3.5-5.1); Sodium Level 140 mmol/L (136-145); Triglycerides 100 mg/dL; Very Low Density Lipoprotein 20 mg/dL (5-40)
[2023-07-05 11:10] LABS: Microalbumin,Random Urine 20.5 mg/L (NO RANGE EST.)
== END | disposition home or self-care (01) ==
LOC: LAB 09:59
PROVIDERS: PCP Nurse Practitioner Family; Referring Provider Nurse Practitioner Family; Visit Provider Nurse Practitioner Family
DX: I10 Essential (primary) hypertension (principal); E78.00 Pure hypercholesterolemia, unspecified; Z12.5 Encounter for screening for malignant neoplasm of prostate
CPT/HCPCS: 36415; 80053; 80061; 82043; 82570; 84153; 85027; G0103